=== PATIENT | female | born 1955 | race African-American/Black ===

== ENCOUNTER 2019-01-21 11:35 | Emergency (ER) | payer MEDICARE, OTHER ==
[~2019-01-21] VITALS: Ht 165.1 cm; Wt 95.0 kg
[~2019-01-21 11:35] MED LIST: DOCU50CA3 PO; FOLI0.4T2 PO; HYDR-519 PO; HYDR200T80 PO; HYDR4TAB4 PO; HYDR50TA54 PO; LIP40 PO; Metoprolol Tartrate PO; OMEP40CA34 PO; PRED10TA PO
[2019-01-21] MEDS ORDERED: NITROGLYCERIN OINT 1GM/INCH UDPKT TD ONE (12:30)
[2019-01-21] MEDS ORDERED: LIDOCAINE 1%/EPI 1:100,000 10 ML VIAL IJ ONE (12:30)
[2019-01-21] MEDS ORDERED: LIDOCAINE HCL/EPINEPHRINE 1%-EPI 1:100,000 20 ML VIAL INFIL NR (12:45)
[2019-01-21 13:00] LABS: BASOPHILS % 0.4 % (0.0-2.0); EOSINOPHILS % 0.5 % (0.0-5.0); HEMATOCRIT. 33.5 % (36.0-48.0); LYMPHOCYTES % 34.8 % (20.0-50.0); MEAN CORPUSCULAR HEMOGLOBIN 29.3 pg (28.0-32.0); MEAN CORPUSCULAR VOLUME 89.4 fL (81.0-99.0); MEAN PLATELET VOLUME 8.5 fl (7.4-10.4); MONOCYTES % 8.4 % (2.0-8.0); NEUTROPHILS % 55.9 % (40.0-76.0); PLATELET 108 x1000/uL (130-400); RED BLOOD CELL COUNT 3.75 mill/uL (4.2-5.4)
[2019-01-21 13:07] LABS: D-DIMER 0.59 mg/L FEU (<0.50); PROTHROMBIN TIME 10.2 sec (9.6-11.0)
[2019-01-21 13:12] LABS: CHLORIDE 108 mEq/L (98-107)
[2019-01-21] MEDS ORDERED: MORPHINE SULFATE 2 MG/ML CPJ (NOT FOR IM USE) IV ONE (15:00)
[2019-01-21] MEDS ORDERED: HYDROCODONE/ACETAMINOPHEN 5/325MG TABLET PO ONE (16:30)
[2019-01-21 18:40] VITALS: BP 111/64
== END 2019-01-21 19:10 | disposition short-term general hospital (02) ==
LOC: ER 11:35 → CANBEDREQ 22:20
DX: R07.89 Other chest pain (principal); T82.838A Hemorrhage due to vascular prosthetic devices, implants and grafts, initial encounter; Y82.8 Other medical devices associated with adverse incidents; Y92.89 Other specified places as the place of occurrence of the external cause; M25.551 Pain in right hip; I13.2 Hypertensive heart and chronic kidney disease with heart failure and with stage 5 chronic kidney disease, or end stage renal disease; N18.6 End stage renal disease; I50.9 Heart failure, unspecified; D64.9 Anemia, unspecified; M32.9 Systemic lupus erythematosus, unspecified; Z99.2 Dependence on renal dialysis; Z86.718 Personal history of other venous thrombosis and embolism; Z79.01 Long term (current) use of anticoagulants
CPT/HCPCS: 36415; 71045; 78582; 80053; 84484; 85025; 85379; 85610; 93005; 93970; 96374; 99285; A9540; A9558; J2270; J3490

== ENCOUNTER 2019-03-01 10:41 | Emergency (ER) | payer MEDICARE ==
[~2019-03-01] VITALS: Ht 167.6 cm; Wt 70.0 kg
[2019-03-01 12:48] LABS: BASOPHILS % 1.1 % (0.0-2.0); EOSINOPHILS % 1.3 % (0.0-5.0); HEMATOCRIT. 43.8 % (36.0-48.0); HEMOGLOBIN. 13.8 g/dL (12.0-16.0); LYMPHOCYTES % 54.6 % (20.0-50.0); MEAN CORPUSCULAR HEMOGLOBIN 28.7 pg (28.0-32.0); MEAN CORPUSCULAR VOLUME 91.2 fL (81.0-99.0); MEAN PLATELET VOLUME 9.2 fl (7.4-10.4); PLATELET 131 x1000/uL (130-400); RED BLOOD CELL COUNT 4.81 mill/uL (4.2-5.4); RED CELL DISTRIBUTION WIDTH 19.5 % (11.6-14.6)
[2019-03-01 13:15] LABS: PROTHROMBIN TIME 10.8 sec (9.6-11.0)
[2019-03-01 13:43] LABS: PARTIAL THROMBOPLASTIN TIME > 200.0 sec (23.4-31.0)
[2019-03-01] MEDS ORDERED: MORPHINE SULFATE 4 MG/ML CPJ (NOT FOR IM USE) IV STA (13:50)
[2019-03-01] MEDS ORDERED: ONDANSETRON HCL 4MG/2ML INJ IV STA (13:50)
[2019-03-01 14:20] LABS: CHLORIDE 109 mEq/L (98-107)
[2019-03-01 15:12] VITALS: BP 143/83
[2019-03-01] MEDS ORDERED: HYDROCODONE/ACETAMINOPHEN 5/325MG TABLET PO ONE (16:30)
[2019-03-01] MEDS ORDERED: MORPHINE SULFATE 2 MG/ML CPJ (NOT FOR IM USE) IV PRN (16:45)
== END 2019-03-01 19:20 | disposition short-term general hospital (02) ==
LOC: ER 10:41 → SUPCPDRO 15:41 → CANBEDREQ 18:02 → ER 19:20
DX: T82.838A Hemorrhage due to vascular prosthetic devices, implants and grafts, initial encounter (principal); X58.XXXA Exposure to other specified factors, initial encounter; D68.9 Coagulation defect, unspecified; I13.2 Hypertensive heart and chronic kidney disease with heart failure and with stage 5 chronic kidney disease, or end stage renal disease; N18.6 End stage renal disease; Z99.2 Dependence on renal dialysis; Z86.73 Personal history of transient ischemic attack (TIA), and cerebral infarction without residual deficits; Z90.49 Acquired absence of other specified parts of digestive tract; Z96.649 Presence of unspecified artificial hip joint; I25.10 Atherosclerotic heart disease of native coronary artery without angina pectoris; Z79.899 Other long term (current) drug therapy; Z88.8 Allergy status to other drugs, medicaments and biological substances
CPT/HCPCS: 36415; 71045; 80053; 85025; 85610; 85730; 86850; 86900; 86901; 93005; 96374; 96375; 96376; 99285; J2270; J2405